=== PATIENT | male | born 1975 | race Caucasian/White ===

== ENCOUNTER 2018-11-12 10:10 | Emergency (ER) | payer MEDICAID, OTHER ==
[2018-11-12] MEDS: KETOROLAC 30 MG INJ IM (10:52)
== END 2018-11-12 11:24 | disposition home or self-care (01) ==
LOC: FTE 10:10
DX: M25.511 Pain in right shoulder (principal)
CPT/HCPCS: 73030; 73030-RT; 96372; 99284-25